=== PATIENT | female | born 1940 | race Caucasian/White ===

== ENCOUNTER 2018-05-23 12:08 | Emergency (ER) | payer MEDICARE, OTHER ==
[~2018-05-23] VITALS: Ht 157.5 cm; Wt 61.2 kg
[~2018-05-23 12:08] MED LIST: ATEN25 PO; GABA100 PO; IBUP800 PO; LEVFLO500 PO; OMEP20ER PO; TRAV.004OP OU
[2018-05-23 13:57] LABS: BASOPHILS ABSOLUTE AUTO 0.05 K/mm3 (0.00-0.23); BASOPHILS PERCENT AUTO 1 % (0-2); EOSINOPHILS ABSOLUTE AUTO 0.03 K/mm3 (0.00-0.68); EOSINOPHILS PERCENT AUTO 1 % (0-6); Hematocrit 39.7 % (33.0-51.0); Hemoglobin 13.5 g/dL (11.5-16.0); IMMATURE GRAN ABSOLUTE AUTO 0.01 K/mm3 (0.00-0.10); IMMATURE GRAN PERCENT AUTO 0 % (0-1); LYMPHOCYTES ABSOLUTE AUTO 1.42 K/mm3 (0.84-5.20); LYMPHOCYTES PERCENT AUTO 22 % (21-46); MONOCYTES ABSOLUTE AUTO 0.45 K/mm3 (0.16-1.47); MONOCYTES PERCENT AUTO 7 % (4-13); Mean Corpuscular Volume 91 fL (80-100); Mean Platelet Volume 9.6 fL (9.1-12.4); NEUTROPHILS ABSOLUTE AUTO 4.47 K/mm3 (1.96-9.15); NEUTROPHILS PERCENT AUTO 69 % (41-73); Platelet Count 260 K/mm3 (150-400); RDW Coefficient Variation 12.8 % (11.7-14.2); RDW Standard Deviation 42.7 fL (35.1-46.3); Red Blood Cell Count 4.36 M/mm3 (3.80-5.20); White Blood Cell Count 6.43 K/mm3 (4.00-11.30)
[2018-05-23 14:19] LABS: Alanine Aminotransfer (ALT/SGP 28 U/L (12-78); Albumin, Blood 3.8 g/dL (3.4-5.0); Albumin/Globulin Ratio 0.9 (0.8-1.8); Alk Phos 59 U/L (50-136); Anion Gap 8 mmol/L (6-16); Aspartate Aminotrans (AST/SGOT 25 U/L (12-37); Bilirubin, Total 0.6 mg/dL (0.1-1.0); Blood Urea Nitrogen 16 mg/dL (8-24); Bun/Creatinine Ratio 18.4 (12.0-20.0); CO2, Blood 30 mmol/L (21-32); Chloride, Blood 94 mmol/L (98-108); Creatinine, Blood 0.87 mg/dL (0.40-1.00); Globulin, Blood 4.2 g/dL (2.2-4.0); Glomerular Filtration Rate >60 (60-); Glucose, Blood 85 mg/dL (70-99); Potassium, Blood 3.8 mmol/L (3.5-5.5); Sodium, Blood 132 mmol/L (136-145)
[2018-05-23 16:53] LABS: Source, Urine Clean Catch
[2018-05-23 17:07] LABS: Bilirubin, Urine Neg (Neg); Blood, Urine Neg (Neg); Glucose Qualitative, Urine Neg (Neg); Ketones, Urine Neg (Neg); Leukocyte Esterase, Urine Neg (Neg); Nitrite, Urine Neg (Neg); Protein, Urine Neg (Neg); Specific Gravity, Urine 1.015 (1.003-1.022); Urobilinogen, Urine NORM (Normal)
[2018-05-23 17:16] LABS: Appearance, Urine Clear (Clear); Color, Urine Yellow (P-Yellow)
[2018-05-23] MEDS ORDERED: Zofran4 MG PO (19:44)
[2018-05-23] MEDS ORDERED: Norco 5-325 Ta1 EACH PO (19:44)
[2018-05-23] MEDS ORDERED: Omeprazole20 M1 PO (19:44)
== END 2018-05-23 20:02 | disposition home or self-care (01) ==
LOC: ER 12:08
PROVIDERS: Emergency Medicine
DX: R10.13 Epigastric pain (principal); I10 Essential (primary) hypertension; K21.9 Gastro-esophageal reflux disease without esophagitis; Z87.891 Personal history of nicotine dependence
CPT/HCPCS: 36415; 71046; 80053; 81003; 83690; 84484; 85025; 93005; 93010; 99284-25

== ENCOUNTER 2018-09-19 07:30 | Day surgery (SDC) | payer MEDICARE, OTHER ==
[~2018-09-19] VITALS: Ht 157.5 cm; Wt 61.7 kg
[~2018-09-19 07:30] MED LIST changes: +Aspir 8181 MG PO; +CLON.1 PO; +CLON.3TP TOP; +ERGO400 PO; +ESCI10 PO; +HYDCHL25 PO; +LOSA25 PO; +Norco 5-325 Ta1 EACH PO; +Omeprazole20 M1 PO; +Super B Comple1 EAC2 PO; +VIT1CAPS12 PO; +Xalatan2.5 ML BOTHEYES; +Zofran4 MG PO
--- NOTE | 2018-09-19 08:23 | NUR ---
Ambulatory in Day Surgery Lungs clear T/O to Auscultation. History, Chart, Medications and Allergies reviewed before start of procedure. Patient confirms NPO status and agrees with scheduled surgery. Pre-Op teaching done. Pt verbalizes understanding. Patient States Post-Procedure ride home has been arranged.
--- NOTE | 2018-09-19 12:58 | NUR ---
TRANSFER TO DAYSURGERY WITH KELBY DOMINGUEZ
--- NOTE | 2018-09-19 13:53 | NUR ---
"DAY SURGERY RN | DISCHARGE Patient VSS, A/O. No issues in stepdown. Pain meds given per written orders. Discharge instructions stable, family at bedside. Sites C/D/I. Patient states she takes one baby aspirin daily. No order to hold or change medications from surgeon. Patient tolerating PO fluids and food. Denies pain and nausea. Patient wheeled to private vehicle for ride home. All belongings returned to patient."
--- NOTE | 2018-09-19 14:03 | NUR ---
VERBAL ORDER FROM DR. ROSE TO RESTART ALL HOME MEDS INCLUDING ASPIRIN.
== END 2018-09-20 22:46 | disposition home or self-care (01) ==
LOC: ORSCMMR 07:30 → ORD 09:00 → ORSCMMR 09:00
PROVIDERS: Surgery
PROC: 0FT44ZZ Resection of Gallbladder, Percutaneous Endoscopic Approach (ICD-10-PCS; principal; 2018-09-19 11:30)
DX: K80.20 Calculus of gallbladder without cholecystitis without obstruction (principal); I10 Essential (primary) hypertension; Z79.899 Other long term (current) drug therapy; Z79.82 Long term (current) use of aspirin
CPT/HCPCS: 88304; J0694; J1885; J2250; J2710; J3010; J7030; J7120

== ENCOUNTER 2018-09-20 13:36 | Inpatient (IN) | payer MEDICARE, OTHER ==
[~2018-09-20] VITALS: Ht 157.5 cm; Wt 69.1 kg
[2018-09-20 14:34] LABS: Alanine Aminotransfer (ALT/SGP 56 U/L (12-78); Albumin, Blood 3.8 g/dL (3.4-5.0); Albumin/Globulin Ratio 0.9 (0.8-1.8); Alk Phos 53 U/L (50-136); Anion Gap 11 mmol/L (6-16); Aspartate Aminotrans (AST/SGOT 46 U/L (12-37); Bilirubin, Total 0.6 mg/dL (0.1-1.0); Blood Urea Nitrogen 23 mg/dL (8-24); Bun/Creatinine Ratio 24.9 (12.0-20.0); CO2, Blood 27 mmol/L (21-32); Chloride, Blood 97 mmol/L (98-108); Creatinine, Blood 0.93 mg/dL (0.40-1.00); Globulin, Blood 4.1 g/dL (2.2-4.0); Glomerular Filtration Rate >60 (60-); Glucose, Blood 108 mg/dL (70-99); Potassium, Blood 3.3 mmol/L (3.5-5.5); Sodium, Blood 135 mmol/L (136-145); Total Protein, Blood 7.9 g/dL (6.4-8.2); Troponin I <0.015 ng/mL (0.000-0.040)
[2018-09-20 14:35] LABS: BASOPHILS ABSOLUTE AUTO 0.03 K/mm3 (0.00-0.23); BASOPHILS PERCENT AUTO 0 % (0-2); EOSINOPHILS ABSOLUTE AUTO 0.01 K/mm3 (0.00-0.68); EOSINOPHILS PERCENT AUTO 0 % (0-6); Hematocrit 37.6 % (33.0-51.0); Hemoglobin 12.6 g/dL (11.5-16.0); IMMATURE GRAN ABSOLUTE AUTO 0.03 K/mm3 (0.00-0.10); IMMATURE GRAN PERCENT AUTO 0 % (0-1); LYMPHOCYTES PERCENT AUTO 16 % (21-46); MONOCYTES ABSOLUTE AUTO 0.89 K/mm3 (0.16-1.47); MONOCYTES PERCENT AUTO 8 % (4-13); Mean Corpuscular HGB 30.1 pg (26.0-34.0); Mean Corpuscular HGB Conc 33.5 g/dL (31.5-36.5); Mean Corpuscular Volume 90 fL (80-100); Mean Platelet Volume 9.6 fL (9.1-12.4); NEUTROPHILS ABSOLUTE AUTO 7.88 K/mm3 (1.96-9.15); NEUTROPHILS PERCENT AUTO 75 % (41-73); Platelet Count 268 K/mm3 (150-400); RDW Coefficient Variation 12.6 % (11.7-14.2); RDW Standard Deviation 41.4 fL (35.1-46.3); Red Blood Cell Count 4.19 M/mm3 (3.80-5.20); White Blood Cell Count 10.54 K/mm3 (4.00-11.30)
[2018-09-20 20:06] LABS: Source, Urine Catheter
[2018-09-20 20:08] LABS: Appearance, Urine Clear (Clear); Bilirubin, Urine Neg (Neg); Blood, Urine Neg (Neg); Color, Urine Yellow (P-Yellow); Glucose Qualitative, Urine Neg (Neg); Ketones, Urine Neg (Neg); Leukocyte Esterase, Urine Neg (Neg); Nitrite, Urine Neg (Neg); Protein, Urine Neg (Neg); Urobilinogen, Urine NORM (Normal); pH, Urine 6.5 (5.0-8.0)
--- NOTE | 2018-09-20 22:47 | NUR ---
TRANSFERED CARE TO NEXT RN. PT REPORTS NAUSEA HAS IMPROVED WITH ZOFRAN. STRAIGHT CATH COMPLETED AND URINE SAMPLE SENT TO THE LAB. PT HAS NOT VOIDED SINCE. NEXT RN IS AWARE AND WILL CTM.
--- NOTE | 2018-09-20 22:55 | NUR ---
ASSUMED CARE OF PT, PT IS SLEEPING WILL CONT TO MONITOR. CALL LIGHT IN REACH.
--- NOTE | 2018-09-21 01:45 | NUR ---
PT WAS ABLE TO VOID 400ML. DID PVR AND IT SHOWED 325ML. PT DID ATTEMPT TO VOID MORE BUT UNABLE. PT STATES ABD DOES FEEL BEETER AND LESS BLOATED. WILL WAIT ON ST CATH'ING AT THIS TIME. WAS MEDICATED WITH 0.5MG DILAUDID. BP MUCH BETTER.
--- NOTE | 2018-09-21 05:55 | NUR ---
PT IS POD 2 S/P LAP OMAYRA DONE OUTPT AND RETURNED FOR POST OP PAIN. PAIN AND DISTENTION SEEM TO BE RELATED TO URINARY RETENTION. PT HAS BEEN CATH'D TWICE THIS SHIFT WHICH RELIEVED MOST OF PAIN. ALSO PT HAD TO BE TITRATED UP TO 3L NC TO MAINTAIN SPO2>90. INCENTIVE SPIROMETER HAS BEEN GIVEN. CALL LIGHT IN REACH.
[2018-09-21 06:18] LABS: Alanine Aminotransfer (ALT/SGP 57 U/L (12-78); Albumin, Blood 3.3 g/dL (3.4-5.0); Albumin/Globulin Ratio 0.9 (0.8-1.8); Alk Phos 57 U/L (50-136); Anion Gap 8 mmol/L (6-16); Aspartate Aminotrans (AST/SGOT 51 U/L (12-37); Bilirubin, Total 0.7 mg/dL (0.1-1.0); Blood Urea Nitrogen 15 mg/dL (8-24); Bun/Creatinine Ratio 18.8 (12.0-20.0); CO2, Blood 30 mmol/L (21-32); Calcium, Blood 8.5 mg/dL (8.5-10.1); Chloride, Blood 100 mmol/L (98-108); Globulin, Blood 3.7 g/dL (2.2-4.0); Glomerular Filtration Rate >60 (60-); Glucose, Blood 105 mg/dL (70-99); Potassium, Blood 3.4 mmol/L (3.5-5.5); Sodium, Blood 138 mmol/L (136-145)
--- NOTE | 2018-09-21 19:00 | NUR ---
PT. LYING IN BED AFTER AMBULATING IN [place]. IVF DISCONTINUED AND CLEAR LIQUIDS STARTED. PT. TOLERATING WELL. PY. GIVEN SUPPOSITORY AND MIRALAX TODAY PER DR. ROSE. PT. PRESENTED WITH MEDIUM STOOL BROWN IN COLOR. PT. HAS ONLY VOIDED A SMALL AMOUNT TODAY AND DENIES THE NEED TO VOID. BLADDER SCAN DONE 3 TIMES TODAY AND THE MOST IT SHOWED WAS 200. PT. BLADDER AREA NON-TENDER WHEN PALPATED. PT. HAD A HIDA SCAN EARLIER TODAY WHICH SHOWED A SMALL LEAK. NO OTHER NOTEABLE CHANGES THIS SHIFT.
--- NOTE | 2018-09-22 04:50 | NUR ---
PT POD 3 S/P OUT PT LAP OMAYRA. PT DID REQ 3LO2 NC TO KEEP SATS >90%, OTHER VSS. PT IS BREATHING SHALLOW R/T PAIN, I/S AND DEEP BREATHING REINFORCED. PT CONT TO C/O RUQ ABD PAIN; ABD MOD DISTENDED, PT REP NO FLATUS; DENIED N/V. I/O CATH DONE X1 R/T BLADDER SCAN >400. STERI STRIPS CDI. PT UP OOB W/FWW+1 ASSIST, IS PAINFUL W/MVMT. PT USING CALL LIGHT FOR ASSISTANCE, WILL CONT TO MONITOR UNTIL REP GIVEN TO ONCOMING RN.
[2018-09-22 05:51] LABS: Alanine Aminotransfer (ALT/SGP 98 U/L (12-78); Albumin, Blood 2.9 g/dL (3.4-5.0); Albumin/Globulin Ratio 0.8 (0.8-1.8); Alk Phos 73 U/L (50-136); Anion Gap 6 mmol/L (6-16); Aspartate Aminotrans (AST/SGOT 101 U/L (12-37); Bilirubin, Total 1.4 mg/dL (0.1-1.0); Blood Urea Nitrogen 14 mg/dL (8-24); CO2, Blood 33 mmol/L (21-32); Calcium, Blood 8.2 mg/dL (8.5-10.1); Chloride, Blood 98 mmol/L (98-108); Creatinine, Blood 0.78 mg/dL (0.40-1.00); Globulin, Blood 3.7 g/dL (2.2-4.0); Glomerular Filtration Rate >60 (60-); Glucose, Blood 103 mg/dL (70-99); Potassium, Blood 4.1 mmol/L (3.5-5.5); Sodium, Blood 137 mmol/L (136-145); Total Protein, Blood 6.6 g/dL (6.4-8.2)
[2018-09-22 09:07] LABS: International Normalized Ratio 1.02; Prothrombin Time Results 10.8 Sec (9.7-11.5)
[2018-09-22 11:59] LABS: Source, Urine Catheter
[2018-09-22 12:13] LABS: Blood, Urine 2+ (Neg); Glucose Qualitative, Urine Neg (Neg); Ketones, Urine 3+ (Neg); Leukocyte Esterase, Urine 1+ (Neg); Nitrite, Urine Neg (Neg); Protein, Urine 2+ (Neg); Specific Gravity, Urine 1.025 (1.003-1.022); Urobilinogen, Urine 1+ (Normal)
[2018-09-22 12:38] LABS: Bilirubin, Urine 1+ (Neg)
[2018-09-22 12:42] LABS: Appearance, Urine Clear (Clear); Color, Urine Yellow (P-Yellow)
[2018-09-22 12:44] LABS: Granular Casts 0-2 /lpf (0)
[2018-09-22 12:45] LABS: White Blood Cells, Urine 0-2 /hpf (0-5)
[2018-09-22 12:50] LABS: Squamous Epithelial Cells Few /hpf (Few)
[2018-09-22 12:51] LABS: Bacteria Rare /hpf; Mucus Light (0-Heavy)
--- NOTE | 2018-09-22 16:16 | NUR ---
SHIFT SUMMARY- PT C/O ABDOMINAL PAIN. MEDS GIVEN PER EMAR. PT DENIES N/V. PT REPORTS SHE IS PASSING GAS. CLAY CATH PLACED. PATENT AND DRAINING CLEAR BRIGHT ORANGE URINE. UA SENT. PT HAD US OF ABDOMEN TODAY AND A WOLOF PIGTAIL DRAIN CATH PLACED. PT TOLERATING CLEAR LIQUID DIET WELL. DENIES SOB. RESP E/U. 92% ON 3L O2 NC. 1 ASSIST WITH FWW. PT'S SPOUSE AND FAMILY IN TO SEE PT TODAY. NO OTHER SIGNIFICANT CHANGES THIS SHIFT.
[2018-09-23 04:41] LABS: BASOPHILS ABSOLUTE AUTO 0.02 K/mm3 (0.00-0.23); BASOPHILS PERCENT AUTO 0 % (0-2); EOSINOPHILS ABSOLUTE AUTO 0.02 K/mm3 (0.00-0.68); EOSINOPHILS PERCENT AUTO 0 % (0-6); Hematocrit 31.7 % (33.0-51.0); Hemoglobin 10.4 g/dL (11.5-16.0); IMMATURE GRAN ABSOLUTE AUTO 0.02 K/mm3 (0.00-0.10); IMMATURE GRAN PERCENT AUTO 0 % (0-1); LYMPHOCYTES ABSOLUTE AUTO 0.65 K/mm3 (0.84-5.20); LYMPHOCYTES PERCENT AUTO 8 % (21-46); MONOCYTES ABSOLUTE AUTO 0.59 K/mm3 (0.16-1.47); MONOCYTES PERCENT AUTO 8 % (4-13); Mean Corpuscular HGB 30.1 pg (26.0-34.0); Mean Corpuscular HGB Conc 32.8 g/dL (31.5-36.5); Mean Corpuscular Volume 92 fL (80-100); Mean Platelet Volume 9.9 fL (9.1-12.4); NEUTROPHILS ABSOLUTE AUTO 6.58 K/mm3 (1.96-9.15); NEUTROPHILS PERCENT AUTO 83 % (41-73); Platelet Count 187 K/mm3 (150-400); RDW Coefficient Variation 13.1 % (11.7-14.2); RDW Standard Deviation 43.7 fL (35.1-46.3); Red Blood Cell Count 3.46 M/mm3 (3.80-5.20); White Blood Cell Count 7.88 K/mm3 (4.00-11.30)
[2018-09-23 05:00] LABS: Alanine Aminotransfer (ALT/SGP 95 U/L (12-78); Albumin, Blood 2.4 g/dL (3.4-5.0); Albumin/Globulin Ratio 0.7 (0.8-1.8); Alk Phos 94 U/L (50-136); Anion Gap 5 mmol/L (6-16); Aspartate Aminotrans (AST/SGOT 79 U/L (12-37); Bilirubin, Total 1.3 mg/dL (0.1-1.0); Blood Urea Nitrogen 10 mg/dL (8-24); Bun/Creatinine Ratio 14.6 (12.0-20.0); CO2, Blood 33 mmol/L (21-32); Calcium, Blood 7.9 mg/dL (8.5-10.1); Chloride, Blood 96 mmol/L (98-108); Creatinine, Blood 0.69 mg/dL (0.40-1.00); Globulin, Blood 3.5 g/dL (2.2-4.0); Glomerular Filtration Rate >60 (60-); Glucose, Blood 129 mg/dL (70-99); Potassium, Blood 3.2 mmol/L (3.5-5.5); Sodium, Blood 134 mmol/L (136-145); Total Protein, Blood 5.9 g/dL (6.4-8.2)
--- NOTE | 2018-09-23 07:50 | NUR ---
POD 4 S/P LAP OMAYRA, POD 1 S/P PIGTAIL DRAIN PLACEMENT. PT VSS T/O NIGHT. PT DOES REP LESS PAIN SINCE DRAIN PLACED, ABD SLIGHTLY LESS DISTENDED THIS AM. DRAIN W/APPX 5CC OUT THIS SHIFT. PT IS PASSING SM AMT FLATUS, NO C/O N/V. PT CONT TO REQ 3L O2 NC TO KEEP SATS >90%, I/S AND DEEP BREATHING REINFORCED DURING NIGHT. CLAY PATENT. PT UP W/FWW+1 ASSIST, IS USING CALL LIGHT FOR ASSISTNACE. IVF CONT PER ORDERS. REP GIVEN TO DAY RN.
--- NOTE | 2018-09-23 18:06 | NUR ---
SHIFT SUMMARY NO ACUTE CHANGES THIS SHIFT. VSS. PT REPORTS BETTER PAIN MANAGEMENT TODAY--GETTING 1MG IV DILAUDID PRN. PT ADY REG DIET. PASSING MINIMAL GAS. AMBULATED HALLWAY X1 AND CONTINUING TO ENCOURAGE. DENIES N/V. PIG TAIL DRAIN TO R ABD IS INTACT WITH GREEN BILE DRAINAGE. STERI STRIPS TO ABD ARE CDI. CLAY IN PLACE FOR URINARY RETENTION. PT USES CALL LIGHT APPROPRIATELY.
[2018-09-24 04:11] LABS: BASOPHILS ABSOLUTE AUTO 0.02 K/mm3 (0.00-0.23); BASOPHILS PERCENT AUTO 0 % (0-2); EOSINOPHILS ABSOLUTE AUTO 0.22 K/mm3 (0.00-0.68); EOSINOPHILS PERCENT AUTO 3 % (0-6); Hematocrit 32.1 % (33.0-51.0); Hemoglobin 10.5 g/dL (11.5-16.0); IMMATURE GRAN ABSOLUTE AUTO 0.03 K/mm3 (0.00-0.10); IMMATURE GRAN PERCENT AUTO 0 % (0-1); LYMPHOCYTES ABSOLUTE AUTO 0.79 K/mm3 (0.84-5.20); LYMPHOCYTES PERCENT AUTO 11 % (21-46); MONOCYTES ABSOLUTE AUTO 0.62 K/mm3 (0.16-1.47); MONOCYTES PERCENT AUTO 9 % (4-13); Mean Corpuscular HGB 30.3 pg (26.0-34.0); Mean Corpuscular HGB Conc 32.7 g/dL (31.5-36.5); Mean Corpuscular Volume 93 fL (80-100); Mean Platelet Volume 10.2 fL (9.1-12.4); NEUTROPHILS PERCENT AUTO 76 % (41-73); Platelet Count 208 K/mm3 (150-400); RDW Coefficient Variation 12.8 % (11.7-14.2); RDW Standard Deviation 43.1 fL (35.1-46.3); Red Blood Cell Count 3.46 M/mm3 (3.80-5.20); White Blood Cell Count 7.08 K/mm3 (4.00-11.30)
--- NOTE | 2018-09-24 04:20 | NUR ---
SHIFT SUMMARY: PT POD #5 LAP OMYARA. STERI STRIPS CDI WITH SML AMT OF DRG. PIG TAIL DRAIN INTACT WITH MINIMAL OUTPUT IF GREENISH-YELLOW BILE. PAIN MANAGED WITH 1 MG DILAUDID. ADY REG DIET. DENIES N/V. REPORTS PASSING SML AMT OF GAS. FLUIDS INFUSING. CLAY INTACT AND DRAINING [place] AMT OF URINE. O2 DECREASED FROM 3L TO 2.5 L NC. SATS MAINTAINED ABOVE 90%. CONTINUE TO DECREASE TOLERATED. OOB ONCE THIS SHIFT. AMBULATION ENCOURAGED.
[2018-09-24 04:33] LABS: Alanine Aminotransfer (ALT/SGP 69 U/L (12-78); Albumin, Blood 2.1 g/dL (3.4-5.0); Albumin/Globulin Ratio 0.6 (0.8-1.8); Alk Phos 119 U/L (50-136); Anion Gap 5 mmol/L (6-16); Aspartate Aminotrans (AST/SGOT 44 U/L (12-37); Bilirubin, Total 1.3 mg/dL (0.1-1.0); Blood Urea Nitrogen 6 mg/dL (8-24); Bun/Creatinine Ratio 9.2 (12.0-20.0); CO2, Blood 34 mmol/L (21-32); Calcium, Blood 7.8 mg/dL (8.5-10.1); Chloride, Blood 99 mmol/L (98-108); Creatinine, Blood 0.65 mg/dL (0.40-1.00); Globulin, Blood 3.6 g/dL (2.2-4.0); Glomerular Filtration Rate >60 (60-); Glucose, Blood 106 mg/dL (70-99); Sodium, Blood 138 mmol/L (136-145); Total Protein, Blood 5.7 g/dL (6.4-8.2)
--- NOTE | 2018-09-24 16:52 | NUR ---
SHIFT SUMMARY NO ACUTE CHANGES THIS SHIFT. ATTEMPTED RA AND PT DROPPED TO 88%. ON 1L O2 AND NOW 91-93%. STARTED ON ORAL PAIN MEDS AND TAKING 1 NORCO PRN. ADY REG DIET. AMBULATING HALLWAY WITH SBA. PASSING MINIMAL GAS. PIGTAIL DRAIN WITH MINIMAL GREEN DRAINAGE IN IT. CLAY DC'D TODAY AND PLANNING TO BLADDER SCAN PRN. STERI STRIPS TO ABD ARE DRY AND INTACT. CALL LIGHT WITHIN REACH.
--- NOTE | 2018-09-25 00:40 | NUR ---
STARTED MIDNIGHT ABX- IV BEGAN LEAKING. PLAN TO ATTEMPT NEW IV AND FINISH ABX.
--- NOTE | 2018-09-25 01:16 | NUR ---
IV ABX NOW RUNNING.
--- NOTE | 2018-09-25 01:53 | NUR ---
REPORT RECIEVED FROM RUDI DOMINGUEZ.CARE ASSUMED AT THIS TIME
--- NOTE | 2018-09-25 02:16 | NUR ---
REPORT GIVEN TO ALBERTO GARCIA WHO WILL BE RESUMING CARE OF PATIENT.
--- NOTE | 2018-09-25 04:31 | NUR ---
SUMMARY: NO CHANGE SINCE ASSUMING CARE. PT MEDICATED FOR PAIN PRN PO AND 1MG DILAUDID FOR BREAK THROUGH. INDEPENDENT IN ROOM. VSS, NO SAFETY CONCERNS AT THIS TIME. WILL REPORT TO DAY RN
--- NOTE | 2018-09-25 04:57 | NUR ---
ABOUT 90ML IN PIGTAIL BAG, LEFT UNDRAINED. APPEARS PURULENT. WILL CTM
--- NOTE | 2018-09-25 10:00 | NUR ---
ROUNDING: DR FERGUSON IN TO SEE PATIENT. DRAIN LEFT IN PLACE AT THIS TIME. REPEAT LAB WORK PENDING. ENCOURAGING AMBULATION. PT WALKING HALLWAYS WITH . CONT TO PASS FLATUS.
[2018-09-25 10:50] LABS: Alanine Aminotransfer (ALT/SGP 74 U/L (12-78); Albumin, Blood 2.6 g/dL (3.4-5.0); Albumin/Globulin Ratio 0.6 (0.8-1.8); Alk Phos 225 U/L (50-136); Anion Gap 7 mmol/L (6-16); Aspartate Aminotrans (AST/SGOT 54 U/L (12-37); Bilirubin, Total 1.3 mg/dL (0.1-1.0); Blood Urea Nitrogen 10 mg/dL (8-24); Bun/Creatinine Ratio 12.8 (12.0-20.0); CO2, Blood 34 mmol/L (21-32); Calcium, Blood 8.7 mg/dL (8.5-10.1); Chloride, Blood 94 mmol/L (98-108); Creatinine, Blood 0.78 mg/dL (0.40-1.00); Globulin, Blood 4.2 g/dL (2.2-4.0); Glomerular Filtration Rate >60 (60-); Glucose, Blood 119 mg/dL (70-99); Sodium, Blood 135 mmol/L (136-145); Total Protein, Blood 6.8 g/dL (6.4-8.2)
--- NOTE | 2018-09-25 18:24 | NUR ---
PT HAS BEEN STABLE THIS SHIFT. PT UP TO WALK HALLWAYS SEVERAL TIMES AND SIT IN THE CHAIR. PIGTAIL DRAIN WITH ONLY 40CC OUTPUT THIS SHIFT. SURGERY WILL REEVALUTE CONT NEED FOR DRAIN TOMORROW. PT MILD ABD PAIN CONTROLLED WITH PRN NORCO. PT PASSING FLATUS AND HAD FORMED BM THIS EVENING. NO NAUSEA. ADY REG DIET. REPEAT BILIRUBIN UNCHANGED THIS AM. CONT ABX. PT USES CALL LIGHT APPROPRIATELY PRN.
--- NOTE | 2018-09-26 05:46 | NUR ---
SHIFT SUMMARY: NO ACUTE CHANGES THIS SHIFT. PAIN MANAGED WITH NORCO Q4 PER EMAR. PIGTAIL DRAINING YELLOW DRG. TOTAL OUTPUT OF 50 THIS SHIFT. PASSING GAS AND STOOL. ADY REG DIET. RESTING MOST OF SHIFT. NO CONCERNS AT THIS TIME.
[2018-09-26 08:39] LABS: Alanine Aminotransfer (ALT/SGP 59 U/L (12-78); Albumin, Blood 2.6 g/dL (3.4-5.0); Albumin/Globulin Ratio 0.6 (0.8-1.8); Alk Phos 235 U/L (50-136); Anion Gap 8 mmol/L (6-16); Aspartate Aminotrans (AST/SGOT 40 U/L (12-37); Bilirubin, Total 0.9 mg/dL (0.1-1.0); Blood Urea Nitrogen 9 mg/dL (8-24); Bun/Creatinine Ratio 12.6 (12.0-20.0); CO2, Blood 32 mmol/L (21-32); Calcium, Blood 8.7 mg/dL (8.5-10.1); Chloride, Blood 96 mmol/L (98-108); Creatinine, Blood 0.71 mg/dL (0.40-1.00); Glomerular Filtration Rate >60 (60-); Glucose, Blood 85 mg/dL (70-99); Potassium, Blood 3.7 mmol/L (3.5-5.5); Sodium, Blood 136 mmol/L (136-145); Total Protein, Blood 6.6 g/dL (6.4-8.2)
--- NOTE | 2018-09-26 14:05 | NUR ---
DISCHARGE PT HAS DONE WELL TODAY. PAIN WELL MANAGED. DRAIN EDUCATION COMPLETED. PATIENT FEELS COMFORTABLE WITH DISCHARGE.
== END 2018-09-26 14:10 | disposition home or self-care (01) | DRG 395 ==
LOC: ER 13:36 → SURS 13:37
PROVIDERS: Physician Assistant; Surgery; ADMIT Surgery
PROC: 0D9W30Z Drainage of Peritoneum with Drainage Device, Percutaneous Approach (ICD-10-PCS; principal; 2018-09-22)
DX: K91.89 Other postprocedural complications and disorders of digestive system (principal); Z79.82 Long term (current) use of aspirin; I45.6 Pre-excitation syndrome; H35.30 Unspecified macular degeneration; K21.9 Gastro-esophageal reflux disease without esophagitis; I10 Essential (primary) hypertension; Z87.891 Personal history of nicotine dependence; R33.9 Retention of urine, unspecified
CPT/HCPCS: 36415; 49405; 51701; 51702; 71046; 74177; 74181; 76705; 78226; 80053; 81001; 81003; 84484; 85025; 85610; 85730; 87086; 93005; 93010; 96361; 96365; 96366; 96374; 96375; 96376; 99285-25; A9537; G0378; J0694; J1170; J1650; J2405; J3010; J7120; Q9967

== ENCOUNTER → 2018-10-10 | Outpatient (CLI) | payer MEDICARE, OTHER ==
[2018-10-10 07:39] LABS: Albumin, Blood 3.2 g/dL (3.4-5.0); Albumin/Globulin Ratio 0.8 (0.8-1.8); Bilirubin, Direct 0.2 mg/dL (0.0-0.3); Bilirubin, Indirect 0.2 mg/dL (0.1-0.7); Bilirubin, Total 0.4 mg/dL (0.1-1.0); Globulin, Blood 4.1 g/dL (2.2-4.0); Total Protein, Blood 7.3 g/dL (6.4-8.2)
== END | disposition home or self-care (01) ==
LOC: LAB SHORT 07:03 → LAB 07:03
PROVIDERS: Surgery
DX: R74.8 Abnormal levels of other serum enzymes (principal)
CPT/HCPCS: 36415; 80076

== ENCOUNTER → 2018-11-03 | Outpatient (CLI) | payer MEDICARE, OTHER | END | disposition home or self-care (01) | LOC: LAB 12:30 → LAB SHORT 12:30 → LAB FUT 11-03 10:10 | DX: E78.5 Hyperlipidemia, unspecified (principal); K30 Functional dyspepsia | CPT/HCPCS: 87338 ==

== ENCOUNTER → 2019-10-30 | Outpatient (CLI) | payer MEDICARE, OTHER | END | disposition home or self-care (01) | LOC: LAB SHORT 08:15 → LAB 08:15 → LAB FUT 10-26 12:00 | DX: R11.0 Nausea (principal); R10.9 Unspecified abdominal pain | CPT/HCPCS: 87338 ==

== ENCOUNTER 2020-11-26 11:25 | Emergency (ER) | payer MEDICARE, OTHER ==
[~2020-11-26] VITALS: Ht 157.5 cm; Wt 64.0 kg
[2020-11-26] MEDS ORDERED: POTA CHLORIDE ER 20M (12:28)
[2020-11-26] MEDS ORDERED: FUROSEMIDE20 MG PO (12:28)
[2020-11-26] MEDS ORDERED: Ultram50 MG PO (13:37)
== END 2020-11-26 13:41 | disposition home or self-care (01) ==
LOC: ER 11:25
DX: S20.211A Contusion of right front wall of thorax, initial encounter (principal); I10 Essential (primary) hypertension; K21.9 Gastro-esophageal reflux disease without esophagitis; Z88.5 Allergy status to narcotic agent; Z88.8 Allergy status to other drugs, medicaments and biological substances; Z79.899 Other long term (current) drug therapy; Z87.891 Personal history of nicotine dependence; W01.198A Fall on same level from slipping, tripping and stumbling with subsequent striking against other object, initial encounter
CPT/HCPCS: 71101; 99284-25

== ENCOUNTER 2021-05-13 03:26 | Day surgery (SDC) | payer MEDICARE, OTHER ==
[~2021-05-13 03:26] MED LIST changes: +FUROSEMIDE20 MG PO; +POTA CHLORIDE ER 20M; +Ultram50 MG PO
== END 2021-05-13 11:31 | disposition home or self-care (01) ==
LOC: ATC 03:26
DX: I95.9 Hypotension, unspecified (principal); I10 Essential (primary) hypertension; E78.5 Hyperlipidemia, unspecified; Z79.899 Other long term (current) drug therapy
CPT/HCPCS: 36415; 80400; 82533; 96372; J0834

== ENCOUNTER 2021-10-10 07:30 | Day surgery (SDC) | payer MEDICARE, OTHER ==
[~2021-10-10] VITALS: Ht 157.5 cm; Wt 63.6 kg
[~2021-10-10 07:30] MED LIST changes: +K-TAB ER20 MEQ PO; -POTA CHLORIDE ER 20M
--- NOTE | 2021-10-10 10:20 | NUR ---
10/10/21 1020 Cornel Fonseca BUPIVACAINE 0.5% 30 MLS MIXFED WITH EPI 0.15 ML PER ORDER TO CONSTITUTE BUPIVACAINE 0.5% 1:200,000 FOR INJECTION AT OPSITE BY DR. FLORES.
== END 2021-10-10 11:42 | disposition home or self-care (01) ==
LOC: ORSCSDS 07:30
PROVIDERS: Orthopaedic Surgery
PROC: 0LB50ZZ Excision of Right Lower Arm and Wrist Tendon, Open Approach (ICD-10-PCS; principal; 2021-10-10 08:45)
PROC: 0LN70ZZ Release Right Hand Tendon, Open Approach (ICD-10-PCS; principal; 2021-10-10 08:45)
DX: M67.431 Ganglion, right wrist (principal); M65.321 Trigger finger, right index finger; M65.331 Trigger finger, right middle finger; I48.91 Unspecified atrial fibrillation; I10 Essential (primary) hypertension; J44.9 Chronic obstructive pulmonary disease, unspecified; Z87.891 Personal history of nicotine dependence; I50.9 Heart failure, unspecified; Z79.899 Other long term (current) drug therapy
CPT/HCPCS: J0171; J0690; J1100; J1885; J2405; J2704; J3010; J7120

== ENCOUNTER 2023-07-08 06:31 | Day surgery (SDC) | payer MEDICARE, OTHER ==
[~2023-07-08] VITALS: Ht 160 cm; Wt 64.0 kg
--- NOTE | 2023-07-08 08:06 | NUR ---
PT AND VERBALIZED UNDEDSTANDING OF WRITTEN AND VERBAL D/C INST. IV REMOVED. PT AMB TO BATHROOM /C SBA. TOLERATED WELL. PT TAKEN OUT OF THE [facility]ENTER VIA W/C. TAKING CLEAR LIQ /S DIFF.
== END 2023-07-08 08:16 | disposition home or self-care (01) ==
LOC: MHTC 06:31
DX: R06.09 Other forms of dyspnea (principal); I34.0 Nonrheumatic mitral (valve) insufficiency; I34.1 Nonrheumatic mitral (valve) prolapse; I51.89 Other ill-defined heart diseases; I45.10 Unspecified right bundle-branch block; I10 Essential (primary) hypertension
CPT/HCPCS: 93312; 93325; 99152; A9270; J2250; J2310; J3010; J7030

== ENCOUNTER → 2024-01-27 | Outpatient (CLI) | payer MEDICARE, OTHER ==
[2024-01-27 16:31] LABS: Albumin, Blood 2.2 g/dL (3.4-5.0); Albumin/Globulin Ratio 0.6 (0.8-1.8); Bilirubin, Total 0.3 mg/dL (0.1-1.0); Bun/Creatinine Ratio 13.4 (12.0-20.0); Calcium, Blood 8.3 mg/dL (8.5-10.1); Creatinine, Blood 0.97 mg/dL (0.40-1.00); Globulin, Blood 3.8 g/dL (2.2-4.0); Potassium, Blood 2.8 mmol/L (3.5-5.5)
== END ==
LOC: LAB SHORT 14:54 → LAB 14:54
PROVIDERS: Internal Medicine
DX: Z45.2 Encounter for adjustment and management of vascular access device (principal)
CPT/HCPCS: 80053

== ENCOUNTER → 2024-02-03 | Outpatient (CLI) | payer MEDICARE, OTHER ==
[2024-02-03 16:01] LABS: Albumin, Blood 2.3 g/dL (3.4-5.0); Albumin/Globulin Ratio 0.6 (0.8-1.8); Bilirubin, Total 0.4 mg/dL (0.1-1.0); Calcium, Blood 8.6 mg/dL (8.5-10.1); Creatinine, Blood 0.94 mg/dL (0.40-1.00); Globulin, Blood 4.1 g/dL (2.2-4.0); Potassium, Blood 3.5 mmol/L (3.5-5.5); Total Protein, Blood 6.4 g/dL (6.4-8.2)
== END | disposition home or self-care (01) ==
LOC: LAB SHORT 14:10 → LAB 14:10
PROVIDERS: Internal Medicine
DX: Z45.2 Encounter for adjustment and management of vascular access device (principal); R78.81 Bacteremia; Z79.2 Long term (current) use of antibiotics
CPT/HCPCS: 80053

== ENCOUNTER → 2024-02-10 | Outpatient (CLI) | payer MEDICARE, OTHER ==
[2024-02-10 18:06] LABS: Albumin, Blood 2.5 g/dL (3.4-5.0); Albumin/Globulin Ratio 0.6 (0.8-1.8); Bilirubin, Total 0.3 mg/dL (0.1-1.0); Bun/Creatinine Ratio 12.3 (12.0-20.0); Calcium, Blood 8.8 mg/dL (8.5-10.1); Creatinine, Blood 1.06 mg/dL (0.40-1.00); Globulin, Blood 3.9 g/dL (2.2-4.0); Potassium, Blood 4.2 mmol/L (3.5-5.5); Total Protein, Blood 6.4 g/dL (6.4-8.2)
== END | disposition home or self-care (01) ==
LOC: LAB SHORT 17:41 → LAB 17:41
PROVIDERS: Internal Medicine
DX: Z45.2 Encounter for adjustment and management of vascular access device (principal); Z79.2 Long term (current) use of antibiotics
CPT/HCPCS: 80053

== ENCOUNTER → 2024-02-17 | Outpatient (CLI) | payer MEDICARE, OTHER ==
[2024-02-17 17:57] LABS: Albumin, Blood 2.1 g/dL (3.4-5.0); Albumin/Globulin Ratio 0.6 (0.8-1.8); Bilirubin, Total 0.4 mg/dL (0.1-1.0); Bun/Creatinine Ratio 18.1 (12.0-20.0); Calcium, Blood 8.2 mg/dL (8.5-10.1); Creatinine, Blood 1.27 mg/dL (0.40-1.00); Globulin, Blood 3.6 g/dL (2.2-4.0); Potassium, Blood 3.6 mmol/L (3.5-5.5); Total Protein, Blood 5.7 g/dL (6.4-8.2)
== END | disposition home or self-care (01) ==
LOC: LAB 16:08 → LAB SHORT 16:08
PROVIDERS: Internal Medicine
DX: Z45.2 Encounter for adjustment and management of vascular access device (principal)
CPT/HCPCS: 80053

== ENCOUNTER → 2024-03-01 | Outpatient (CLI) | payer MEDICARE, OTHER ==
[2024-03-01 18:14] LABS: BASOPHILS ABSOLUTE AUTO 0.06 K/mm3 (0.00-0.23); BASOPHILS PERCENT AUTO 1 % (0-2); EOSINOPHILS ABSOLUTE AUTO 0.03 K/mm3 (0.00-0.68); EOSINOPHILS PERCENT AUTO 1 % (0-6); Hematocrit 33.8 % (33.0-51.0); Hemoglobin 10.6 g/dL (11.5-16.0); IMMATURE GRAN ABSOLUTE AUTO 0.01 K/mm3 (0.00-0.10); IMMATURE GRAN PERCENT AUTO 0 % (0-1); LYMPHOCYTES ABSOLUTE AUTO 1.17 K/mm3 (0.84-5.20); LYMPHOCYTES PERCENT AUTO 25 % (21-46); MONOCYTES ABSOLUTE AUTO 0.45 K/mm3 (0.16-1.47); MONOCYTES PERCENT AUTO 10 % (4-13); Mean Corpuscular HGB Conc 31.4 g/dL (31.5-36.5); Mean Corpuscular Volume 96 fL (80-100); Mean Platelet Volume 11.9 fL (9.1-12.4); NEUTROPHILS ABSOLUTE AUTO 3.03 K/mm3 (1.96-9.15); NEUTROPHILS PERCENT AUTO 64 % (41-73); Platelet Count 234 K/mm3 (150-400); RDW Coefficient Variation 20.3 % (11.7-14.2); RDW Standard Deviation 71.8 fL (35.1-46.3); Red Blood Cell Count 3.53 M/mm3 (3.80-5.20); White Blood Cell Count 4.75 K/mm3 (4.00-11.30)
[2024-03-01 20:15] LABS: Albumin, Blood 2.9 g/dL (3.4-5.0); Albumin/Globulin Ratio 0.6 (0.8-1.8); Bilirubin, Total 0.9 mg/dL (0.1-1.0); Bun/Creatinine Ratio 18.1 (12.0-20.0); Calcium, Blood 9.6 mg/dL (8.5-10.1); Creatinine, Blood 0.94 mg/dL (0.40-1.00); Globulin, Blood 4.7 g/dL (2.2-4.0); Percent Saturation 19.9 % (15.0-50.0); Potassium, Blood 4.3 mmol/L (3.5-5.5); Total Protein, Blood 7.6 g/dL (6.4-8.2)
== END ==
LOC: LAB 15:50 → LAB SHORT 15:50
PROVIDERS: Internal Medicine
DX: D62 Acute posthemorrhagic anemia (principal); E61.1 Iron deficiency; I10 Essential (primary) hypertension
CPT/HCPCS: 80053; 82728; 83540; 83550; 85025

== ENCOUNTER 2024-11-03 15:21 | Inpatient (IN) | payer MEDICARE, OTHER ==
[~2024-11-03] VITALS: Ht 160 cm; Wt 48.2 kg
[~2024-11-03 15:21] MED LIST changes: +Enoxaparin 40 MG/0.4 ML SYR SC SCH
[2024-11-03 15:57] LABS: BASOPHILS ABSOLUTE AUTO 0.04 K/mm3 (0.00-0.23); BASOPHILS PERCENT AUTO 0 % (0-2); EOSINOPHILS ABSOLUTE AUTO 0.01 K/mm3 (0.00-0.68); EOSINOPHILS PERCENT AUTO 0 % (0-6); Hemoglobin 11.6 g/dL (11.5-16.0); IMMATURE GRAN ABSOLUTE AUTO 0.07 K/mm3 (0.00-0.10); IMMATURE GRAN PERCENT AUTO 1 % (0-1); LYMPHOCYTES ABSOLUTE AUTO 0.91 K/mm3 (0.84-5.20); LYMPHOCYTES PERCENT AUTO 6 % (21-46); MONOCYTES ABSOLUTE AUTO 0.78 K/mm3 (0.16-1.47); MONOCYTES PERCENT AUTO 5 % (4-13); Mean Corpuscular HGB 28.1 pg (26.0-34.0); Mean Corpuscular HGB Conc 31.4 g/dL (31.5-36.5); Mean Corpuscular Volume 90 fL (80-100); NEUTROPHILS ABSOLUTE AUTO 13.06 K/mm3 (1.96-9.15); NEUTROPHILS PERCENT AUTO 88 % (41-73); Platelet Count 161 K/mm3 (150-400); RDW Coefficient Variation 17.4 % (11.7-14.2); RDW Standard Deviation 56.1 fL (35.1-46.3); Red Blood Cell Count 4.13 M/mm3 (3.80-5.20); White Blood Cell Count 14.87 K/mm3 (4.00-11.30)
[2024-11-03] MEDS ORDERED: VENL37.5 PO (16:12)
[2024-11-03] MEDS ORDERED: ELIQUIS2.5 MG PO (16:12)
[2024-11-03] MEDS ORDERED: METOPROLOL SUCC25 MG PO (16:13)
[2024-11-03] MEDS ORDERED: PANT40 PO (16:14)
[2024-11-03] MEDS ORDERED: SENNA LAXATIVE8.6 MG PO (16:15)
[2024-11-03] MEDS ORDERED: FURO40 PO (16:16)
[2024-11-03] MEDS ORDERED: AMOX500 PO (16:16)
[2024-11-03] MEDS ORDERED: PRESERVISION A1 EAC2 PO (16:18)
[2024-11-03] MEDS ORDERED: MORPHINE S PO (16:18)
[2024-11-03] MEDS ORDERED: PROBIOTIC1 EA14 PO (16:19)
[2024-11-03] MEDS ORDERED: MELATONIN5 M1 PO (16:19)
[2024-11-03 16:20] LABS: Albumin, Blood 3.1 g/dL (3.4-5.0); Albumin/Globulin Ratio 0.8 (0.8-1.8); Bilirubin, Total 3.4 mg/dL (0.1-1.0); Creatinine, Blood 1.25 mg/dL (0.40-1.00); Globulin, Blood 3.8 g/dL (2.2-4.0); Magnesium, Blood 1.9 mg/dL (1.6-2.4); Phosphorus, Blood 4.5 mg/dL (2.5-4.9); Potassium, Blood 5.3 mmol/L (3.5-5.5); Total Protein, Blood 6.9 g/dL (6.4-8.2)
[2024-11-03] MEDS ORDERED: NS 1,000 ML IV SCH (16:45)
[2024-11-03 17:47] LABS: Source, Urine Clean Catch
[2024-11-03 17:53] LABS: Appearance, Urine Hazy (Clear); Bilirubin, Urine Neg (Neg); Blood, Urine Neg (Neg); Color, Urine Yellow (P-Yellow); Glucose Qualitative, Urine Neg (Neg); Ketones, Urine Neg (Neg); Leukocyte Esterase, Urine 1+ (Neg); Nitrite, Urine Neg (Neg); Protein, Urine 2+ (Neg); Urobilinogen, Urine 2+ (Normal)
[2024-11-03 18:08] LABS: Bacteria Few /hpf; Calcium Oxalate Crystals Mod /hpf; Red Blood Cells, Urine 0-2 /hpf (0-2); Squamous Epithelial Cells Few /hpf (Few)
[2024-11-03 20:07] LABS: Influenza A, PCR NEGATIVE (NEGATIVE); Influenza B, PCR NEGATIVE (NEGATIVE); Resp Syncytial Virus, PCR NEGATIVE (NEGATIVE); SARS-Cov-2 (COVID-19) PCR, MMC NEGATIVE (NEGATIVE)
[2024-11-03] MEDS ORDERED: Ondansetron HCl 2 MG / ML 2ML Vial IV PRN (23:30)
[2024-11-03] MEDS ORDERED: FLU VACC TS2024-25(6MOS UP)/PF 45 MCG/0.5 ML SYRINGE IM ONE (23:35)
[2024-11-04] MEDS ORDERED: Docusate Sodium/Senna 1 Tab PO PRN (00:10)
[2024-11-04 00:29] VITALS: BP 112/71
--- NOTE | 2024-11-04 01:37 | NUR ---
ASSUMPTION OF CARE REPORT RECEIVED FROM INSPECTOR OPEN DIE DANA. PT BROUGHT TO PCU VIA GURNEY, PT SLID FROM GURNEY TO PCU BED. SHE IS ALERT, ORIENTED TO SELF ONLY. PER REPORT PTS FAMILY STATED PT IS ALERT AND ORIENTED X4 AT BASELINE. HR IN THE 70'S, SINUS RHYTHM, SHE DENIES ANY CP/PRESSURE, NUMB/TINGLING, SBP SOFT IN THE 100'S, MAP >65. O2 AT 94% ON 4L VIA NC, PT ON 3L AT BASELINE. SHE REPORTS FEELING INCREASININLY SOB OVER THE LAST MONTH. PT HAS REDNESS OF THE COCCYX, MEPILEX PLACED, MD AWARE. PT RESTING IN BED AT THIS TIME. CALL LIGHT IN REACH, BED ALARM ON. RESIDENT TO BEDSIDE TO EXAMINE PT. RESIDENT AWARE PT CONFUSED AND NOT AT BASELINE. ALSO REVIEWED LABS/IMAGING WITH RESIDENT. NO NEW ORDERS AT THIS TIME. PT DENIES QUESTIONS OR CONCERNS.
[2024-11-04 03:24] VITALS: BP 108/67
[2024-11-04 03:57] LABS: BASOPHILS ABSOLUTE AUTO 0.06 K/mm3 (0.00-0.23); BASOPHILS PERCENT AUTO 1 % (0-2); EOSINOPHILS ABSOLUTE AUTO 0.04 K/mm3 (0.00-0.68); EOSINOPHILS PERCENT AUTO 0 % (0-6); Hematocrit 36.5 % (33.0-51.0); Hemoglobin 11.9 g/dL (11.5-16.0); IMMATURE GRAN ABSOLUTE AUTO 0.04 K/mm3 (0.00-0.10); IMMATURE GRAN PERCENT AUTO 0 % (0-1); LYMPHOCYTES ABSOLUTE AUTO 1.21 K/mm3 (0.84-5.20); LYMPHOCYTES PERCENT AUTO 10 % (21-46); MONOCYTES ABSOLUTE AUTO 0.81 K/mm3 (0.16-1.47); MONOCYTES PERCENT AUTO 6 % (4-13); Mean Corpuscular HGB 28.6 pg (26.0-34.0); Mean Corpuscular HGB Conc 32.6 g/dL (31.5-36.5); Mean Corpuscular Volume 88 fL (80-100); Mean Platelet Volume 10.4 fL (9.1-12.4); NEUTROPHILS PERCENT AUTO 83 % (41-73); Platelet Count 164 K/mm3 (150-400); RDW Coefficient Variation 17.3 % (11.7-14.2); RDW Standard Deviation 54.3 fL (35.1-46.3); Red Blood Cell Count 4.16 M/mm3 (3.80-5.20); White Blood Cell Count 12.56 K/mm3 (4.00-11.30)
[2024-11-04 04:15] LABS: Albumin, Blood 2.9 g/dL (3.4-5.0); Albumin/Globulin Ratio 0.8 (0.8-1.8); Bun/Creatinine Ratio 27.4 (12.0-20.0); Calcium, Blood 8.9 mg/dL (8.5-10.1); Creatinine, Blood 1.35 mg/dL (0.40-1.00); Globulin, Blood 3.7 g/dL (2.2-4.0); Potassium, Blood 5.1 mmol/L (3.5-5.5); Total Protein, Blood 6.6 g/dL (6.4-8.2)
--- NOTE | 2024-11-04 05:31 | NUR ---
SHIFT SUMMARY PT ALERT, ORIENTED TO SELF. WHEN ASKED ABOUT PLACE PT STATED "WERE [facility]". SHE IS COOPERATIVE TO CARE. HR IN THE 70'S, SINUS RHYTHM, SHE DENIES CP/PRESSURE, NUMB/TINGLING, SBP IN THE 100'S-110'S. PT ON 4L O2 VIA NC, ON 3L AT BASELINE, SOB WITH EXERTION. T/O SHIFT PT HAD NO URINE OUTPUT, BLADDER SCAN COMPLETED, >393 ON SCAN. RESIDENT IN PCU AT THIS TIME AND NOTIFIED, NO NEW ORDERS PLACED. DISCUSSED WITH PSYCHOLOGY TECHNICIAN, CALL PLACED TO PROVIDER. URMILA ORDERED TO START THIS AM IF BP TOLERATES. ADMITTING DOCTOR PLACED ORDERS FOR CPAP, CALL PLACED TO RT, PER RT PT DOES NOT NEED CPAP AT THIS TIME BUT WILL MONITOR RESPIRATORY STATUS. PT SHORTLY URINATED AFTER AND HAD 200 ML'S OUT. PT WAS ABLE TO TOLERATE GETTING UP TO BSC WITH NURSE ASSIST. PT RESTING IN BED AT THIS TIME WILL MONITOR PT AND REPORT TO ONCOMING RN.
[2024-11-04 08:23] VITALS: BP 119/73
[2024-11-04] MEDS ORDERED: Furosemide 10 MG / ML 2ML Vial IV SCH (09:00)
[2024-11-04] MEDS ORDERED: Furosemide 10 MG/ML 4ML Vial IV SCH (09:00)
[2024-11-04] MEDS ORDERED: Venlafaxine HCl 25 MG Tab PO SCH (09:00)
[2024-11-04] MEDS ORDERED: Apixaban 5 MG Tab PO SCH (09:00)
[2024-11-04] MEDS ORDERED: PRESERVISION A1 EAC1 PO (10:54)
[2024-11-04 12:21] VITALS: BP 117/72
[2024-11-04 16:24] VITALS: BP 112/71
[2024-11-04] MEDS ORDERED: Melatonin 5 MG Tablet PO SCH (18:00)
--- NOTE | 2024-11-04 18:25 | NUR ---
SHIFT SUMMARY PT ALERT, ORIENTED TO SELF. WHEN ASKED ABOUT PLACE PT STATED "WERE [facility] THE [facility]". SHE IS COOPERATIVE TO CARE. HR IN THE 70'S, SINUS RHYTHM, SHE DENIES CP/PRESSURE, NUMB/TINGLING, SBP IN THE 100'S-110'S. PT ON 3L O2 VIA NC, WAS ABLE TO WEAN TO 2L SATS IN THE HIGH 90'S. PAENT ABLE TO STAND AND PIVOT TO BSC WITH A ONE ASSIST. PATIENT PLACED ON CARDIAC DIET. LASIX STARTED. PT RESTING IN BED AT THIS TIME WILL MONITOR PT AND REPORT TO ONCOMING RN.
[2024-11-04 19:23] VITALS: BP 110/65
[2024-11-04] MEDS ORDERED: Beta-Carotene (A) W-C & E/Min 1 Tab PO SCH (21:00)
[2024-11-04] MEDS ORDERED: Amoxicillin 500 MG Cap PO SCH (21:00)
[2024-11-04] MEDS ORDERED: Lactobacil 2-S.Thermo-Bifido 1 1 Cap PO SCH (21:00)
[2024-11-05] VITALS (7 sets, daily range): BP systolic 102–125; BP diastolic 52–77
[2024-11-05 04:42] LABS: BASOPHILS ABSOLUTE AUTO 0.05 K/mm3 (0.00-0.23); BASOPHILS PERCENT AUTO 1 % (0-2); EOSINOPHILS ABSOLUTE AUTO 0.01 K/mm3 (0.00-0.68); EOSINOPHILS PERCENT AUTO 0 % (0-6); Hematocrit 34.1 % (33.0-51.0); Hemoglobin 11.4 g/dL (11.5-16.0); IMMATURE GRAN ABSOLUTE AUTO 0.04 K/mm3 (0.00-0.10); IMMATURE GRAN PERCENT AUTO 0 % (0-1); LYMPHOCYTES ABSOLUTE AUTO 0.96 K/mm3 (0.84-5.20); LYMPHOCYTES PERCENT AUTO 9 % (21-46); MONOCYTES PERCENT AUTO 8 % (4-13); Mean Corpuscular HGB 28.4 pg (26.0-34.0); Mean Corpuscular HGB Conc 33.4 g/dL (31.5-36.5); Mean Corpuscular Volume 85 fL (80-100); NEUTROPHILS ABSOLUTE AUTO 8.36 K/mm3 (1.96-9.15); NEUTROPHILS PERCENT AUTO 82 % (41-73); Platelet Count 163 K/mm3 (150-400); RDW Standard Deviation 52.5 fL (35.1-46.3); Red Blood Cell Count 4.02 M/mm3 (3.80-5.20); White Blood Cell Count 10.22 K/mm3 (4.00-11.30)
[2024-11-05 05:09] LABS: Albumin, Blood 2.9 g/dL (3.4-5.0); Albumin/Globulin Ratio 0.8 (0.8-1.8); Bilirubin, Total 2.5 mg/dL (0.1-1.0); Bun/Creatinine Ratio 33.9 (12.0-20.0); Calcium, Blood 8.9 mg/dL (8.5-10.1); Creatinine, Blood 1.15 mg/dL (0.40-1.00); Globulin, Blood 3.6 g/dL (2.2-4.0); Magnesium, Blood 1.9 mg/dL (1.6-2.4); Phosphorus, Blood 3.5 mg/dL (2.5-4.9); Potassium, Blood 4.1 mmol/L (3.5-5.5); Total Protein, Blood 6.5 g/dL (6.4-8.2)
--- NOTE | 2024-11-05 05:54 | NUR ---
SHIFT SUMMARY PT ALERT, ORIENTED TO SELF. PT UNABLE TO STATE WHERE SHE IS OR WHY SHE IS HERE. SHE IS ABLE TO STATE THE NAME OF HER AND SISTER. HR IN THE 70'S, SINUS RHYTHM, DENIES HAVING ANY CP/PRESSURE, NUMB/TINGLING, SBP STABLE. PER TELE PT HAD AN EPISODE ON THE HEART MONITOR OF ST [facility] THAT OCCURED WITH MOVEMENT BUT RESOLVED, RESIDENT NOTIFIED. O2 >92% ON 3L VIA NC, PT ON 3L AT BASELINE, SHE DOES REPORT SOB OCASSIONALLY, RESOLVES WITH DEEP BREATHING AND REPOSTIONING. PT UP TO BSC A FEW TIMES T/O SHIFT. PT RESTING IN BED AT THIS TIME. WILL MONITOR PT AND REPORT TO ONCOMING RN.
--- NOTE | 2024-11-05 07:51 | NUR ---
ASSUMPTION NOTE: THIS RN TO ASSUME CARE OF PATIENT. PATIENT RESTING IN BED EVEN & UNLABORED RESPIRATIONAS, EASILY AROUSABLE. VITAL SIGNS TAKEN & PATIENT STABLE. PATIENT DENIED ANY CHEST PAIN/PRESSURE. PATIENT ORIENTED X1 TO HER SELF, WAS REORINTED TO BEING AT THE HOSPITAL AND WHAT THE PLAN OF CARE IS MOVING FORWRAD. PATIENT HAS CALL LIGHT WITHIN REACH & BED IN LOWEST POSITION. ASKING FOR BREAKFAST AND NOTIFIED ONCE THE TRAYS ARRIVE IT WILL BE BROUGHT IN.
[2024-11-05] MEDS ORDERED: Losartan Potassium 25 MG Tab PO SCH ×2 (09:00)
[2024-11-05] MEDS ORDERED: Potassium Chloride 20 MEQ TabCR PO SCH (09:00)
--- NOTE | 2024-11-05 09:42 | NUR ---
RESIDENT AT BEDSIDE: REISDENT AT BEDSIDE TO TALK WITH PATIENT AND FAMILY. PATIENT IS REQUESTING WHEN SHE WILL BE ABLE TO GO HOME. PATIENT IS AT BASELINE OXYGEN. DAUGHTER & ARE AT BEDSIDE.
[2024-11-05] MEDS ORDERED: Acetaminophen 325 MG TABLET PO PRN (11:50)
[2024-11-05] MEDS ORDERED: Empagliflozin 10 MG TAB PO SCH (12:00)
[2024-11-05] MEDS ORDERED: Furosemide 10 MG/ML 4ML Vial IV ONE (17:00)
--- NOTE | 2024-11-05 17:15 | NUR ---
TRANSFER NOTE: THIS RN GAVE REPORT TO RECEVING NURSE ON MEDICAL FLOOR. PATIENT TRANSFERED UPSTAIRS VIA WHEELCHAIR WITH OXYGEN. FAMILY WAS NOTIFIED AND WENT UPSTAIRS WITH PATIENT. PATIENT TOOK ALL PERSONAL BELONGINGS WITH HER. PATIENT WAS NOTIFIED WELL. PATIENT IS ALERT AND ORIENTED X2 TO SELF & FAMILY AT BEDSIDE. CONTINUES TO BE ON TELEMETRY.
--- NOTE | 2024-11-05 18:02 | NUR ---
ASSUMPTION OF CARE NOTE: PATIENT ARRIVES TO ROOM VIA WHEELCHAIR AT 1733 FROM PCU. ASSUME CARE OF PATIENT. PATIENT TRANSFFERED TO BED c SBA. SKIN ASSESSMENT c 2 RN'S VERIFIED COMPLETED. PATIENT A/O TO SELF AND FAMILY AT BEDSIDE. PATIENT ORIENTATED TO ROOM AND CALL SYSTEM. VITALS TAKEN. PATIENT SITTING UPRIGHT IN BED HAVING DINNER AT THIS TIME. BED ALARM ON. CALL LIGHT IN REACH.
[2024-11-06 03:07] VITALS: BP 122/67
--- NOTE | 2024-11-06 03:48 | NUR ---
SHIFT SUMMARY PT ALERT ORIENTED ABLE TO VERBALIZE NEEDS CALLS APPROPRIATELY. VSS ON 1L SATTING AT 100%. NO C/O PAIN THIS SHIFT. SHE SLEPT MOST OF THE SHIFT. 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 SHE GETS UP TO THE COMMODE IN HER ROOM WITH SBA. REMAINS ON HALF-WAY AMOXICILLIN FOR ENDOCARDITIS. SHES DUE TO DISCHARGE TO HOME TODAY. NO C/O SOB. REMAINS WITH SLIGHT SWELLING TO BLE. RESTING IN BED AT THIS TIME WITH CALL LIGHT IN [facility]
[2024-11-06 05:15] LABS: BASOPHILS ABSOLUTE AUTO 0.02 K/mm3 (0.00-0.23); BASOPHILS PERCENT AUTO 0 % (0-2); EOSINOPHILS ABSOLUTE AUTO 0.07 K/mm3 (0.00-0.68); EOSINOPHILS PERCENT AUTO 1 % (0-6); Hematocrit 34.8 % (33.0-51.0); Hemoglobin 11.7 g/dL (11.5-16.0); IMMATURE GRAN ABSOLUTE AUTO 0.03 K/mm3 (0.00-0.10); IMMATURE GRAN PERCENT AUTO 0 % (0-1); LYMPHOCYTES ABSOLUTE AUTO 0.71 K/mm3 (0.84-5.20); LYMPHOCYTES PERCENT AUTO 8 % (21-46); MONOCYTES ABSOLUTE AUTO 0.71 K/mm3 (0.16-1.47); MONOCYTES PERCENT AUTO 8 % (4-13); Mean Corpuscular HGB 28.4 pg (26.0-34.0); Mean Corpuscular HGB Conc 33.6 g/dL (31.5-36.5); Mean Corpuscular Volume 85 fL (80-100); Mean Platelet Volume 10.1 fL (9.1-12.4); NEUTROPHILS ABSOLUTE AUTO 7.55 K/mm3 (1.96-9.15); NEUTROPHILS PERCENT AUTO 83 % (41-73); Platelet Count 166 K/mm3 (150-400); RDW Standard Deviation 51.1 fL (35.1-46.3); Red Blood Cell Count 4.12 M/mm3 (3.80-5.20); White Blood Cell Count 9.09 K/mm3 (4.00-11.30)
[2024-11-06 06:00] LABS: Albumin, Blood 2.7 g/dL (3.4-5.0); Albumin/Globulin Ratio 0.8 (0.8-1.8); Bilirubin, Total 1.7 mg/dL (0.1-1.0); Bun/Creatinine Ratio 35.5 (12.0-20.0); Calcium, Blood 8.5 mg/dL (8.5-10.1); Creatinine, Blood 0.96 mg/dL (0.40-1.00); Globulin, Blood 3.4 g/dL (2.2-4.0); Potassium, Blood 3.3 mmol/L (3.5-5.5); Total Protein, Blood 6.1 g/dL (6.4-8.2)
[2024-11-06 08:33] VITALS: BP 119/69
[2024-11-06] MEDS ORDERED: Amoxicillin 500 MG Cap PO SCH (09:00)
[2024-11-06] MEDS ORDERED: Torsemide 20 MG TAB PO SCH (09:00)
[2024-11-06] MEDS ORDERED: Magnesium Oxide 400 MG Tab PO SCH (09:00)
[2024-11-06] MEDS ORDERED: Metoprolol Succinate 25 MG TABCR PO SCH (09:00)
[2024-11-06] MEDS ORDERED: JARDIANCE10 MG PO (11:05)
[2024-11-06] MEDS ORDERED: LOSA25 PO (11:06)
[2024-11-06] MEDS ORDERED: METO25ER PO (11:06)
[2024-11-06] MEDS ORDERED: MAGNESIUM OXID500 MG PO (11:06)
[2024-11-06] MEDS ORDERED: TORS10 PO (11:07)
[2024-11-06] MEDS ORDERED: SPIR25 PO (11:07)
--- NOTE | 2024-11-06 12:17 | NUR ---
DC SUMMARY PT DC THIS SHIFT DC INSTRUCTION GONE OVER WITH PT AND PT WHOM BOTH STATED UNDERSTANDING. PT WAS ESCORTED OUT TO PRIVATE VEHICLE VIA W/C BY ACTION INSTALLER.
== END 2024-11-06 12:17 | disposition home or self-care (01) | DRG 291 ==
LOC: ER 15:21 → PCU 21:55 → ERHOLD 21:55 → PCU 11-04 00:05 → MEDS 11-05 17:30
PROVIDERS: Family Medicine; Student in an Organized Health Care Education/Training Program; ADMIT Internal Medicine
DX: I11.0 Hypertensive heart disease with heart failure (principal); I50.23 Acute on chronic systolic (congestive) heart failure; J96.21 Acute and chronic respiratory failure with hypoxia; N17.9 Acute kidney failure, unspecified; Z66 Do not resuscitate; K21.9 Gastro-esophageal reflux disease without esophagitis; I45.10 Unspecified right bundle-branch block; I45.6 Pre-excitation syndrome; I27.20 Pulmonary hypertension, unspecified; R74.01 Elevation of levels of liver transaminase levels; R74.8 Abnormal levels of other serum enzymes; I44.0 Atrioventricular block, first degree; K76.9 Liver disease, unspecified; E87.6 Hypokalemia; I34.0 Nonrheumatic mitral (valve) insufficiency; Z79.01 Long term (current) use of anticoagulants; Z88.8 Allergy status to other drugs, medicaments and biological substances; Z79.899 Other long term (current) drug therapy; Z98.51 Tubal ligation status; Z90.49 Acquired absence of other specified parts of digestive tract; Z98.890 Other specified postprocedural states; Z87.891 Personal history of nicotine dependence; Z90.710 Acquired absence of both cervix and uterus; Z95.1 Presence of aortocoronary bypass graft; Z95.2 Presence of prosthetic heart valve; Z86.79 Personal history of other diseases of the circulatory system; I69.828 Other speech and language deficits following other cerebrovascular disease
CPT/HCPCS: 0241U; 19001; 36415; 51701; 71046; 71260; 74177; 80053; 81001; 82947; 83690; 83735; 83880; 84100; 84484; 85025; 85379; 87086; 93005; 93010; 93306; 94762; 97110; 97112; 97161; 97530; 99285-25; A9270; J1940; Q9967

== ENCOUNTER → 2024-11-24 | Outpatient (CLI) | payer MEDICARE, OTHER ==
[~2024-11-24] MED LIST changes: +AMOX500 PO; +ELIQUIS2.5 MG PO; -Enoxaparin 40 MG/0.4 ML SYR SC SCH; +FURO40 PO; +JARDIANCE10 MG PO; +MAGNESIUM OXID500 MG PO; +MELATONIN5 M1 PO; +METO25ER PO; +METOPROLOL SUCC25 MG PO; +MORPHINE S PO; +PANT40 PO; +PRESERVISION A1 EAC1 PO; +PRESERVISION A1 EAC2 PO; +PROBIOTIC1 EA14 PO; +SENNA LAXATIVE8.6 MG PO; +SPIR25 PO; +TORS10 PO; +VENL37.5 PO
[2024-11-24 19:16] LABS: BASOPHILS ABSOLUTE AUTO 0.04 K/mm3 (0.00-0.23); BASOPHILS PERCENT AUTO 1 % (0-2); EOSINOPHILS ABSOLUTE AUTO 0.05 K/mm3 (0.00-0.68); EOSINOPHILS PERCENT AUTO 1 % (0-6); Hemoglobin 10.8 g/dL (11.5-16.0); IMMATURE GRAN ABSOLUTE AUTO 0.04 K/mm3 (0.00-0.10); IMMATURE GRAN PERCENT AUTO 1 % (0-1); LYMPHOCYTES ABSOLUTE AUTO 0.85 K/mm3 (0.84-5.20); LYMPHOCYTES PERCENT AUTO 13 % (21-46); MONOCYTES PERCENT AUTO 8 % (4-13); Mean Corpuscular HGB 27.5 pg (26.0-34.0); Mean Corpuscular HGB Conc 31.8 g/dL (31.5-36.5); Mean Corpuscular Volume 87 fL (80-100); Mean Platelet Volume 11.1 fL (9.1-12.4); NEUTROPHILS ABSOLUTE AUTO 5.17 K/mm3 (1.96-9.15); NEUTROPHILS PERCENT AUTO 78 % (41-73); Platelet Count 282 K/mm3 (150-400); RDW Coefficient Variation 16.8 % (11.7-14.2); RDW Standard Deviation 53.3 fL (35.1-46.3); Red Blood Cell Count 3.93 M/mm3 (3.80-5.20); White Blood Cell Count 6.65 K/mm3 (4.00-11.30)
[2024-11-24 20:16] LABS: Albumin, Blood 3.4 g/dL (3.4-5.0); Albumin/Globulin Ratio 0.8 (0.8-1.8); Bilirubin, Total 0.6 mg/dL (0.1-1.0); Bun/Creatinine Ratio 44.6 (12.0-20.0); Calcium, Blood 9.7 mg/dL (8.5-10.1); Creatinine, Blood 1.21 mg/dL (0.40-1.00); Globulin, Blood 4.1 g/dL (2.2-4.0); Potassium, Blood 4.2 mmol/L (3.5-5.5); Total Protein, Blood 7.5 g/dL (6.4-8.2)
== END ==
LOC: LAB 17:46 → LAB SHORT 17:46
PROVIDERS: Internal Medicine
DX: I10 Essential (primary) hypertension (principal); R74.8 Abnormal levels of other serum enzymes; R79.89 Other specified abnormal findings of blood chemistry; R63.4 Abnormal weight loss
CPT/HCPCS: 80053; 83880; 85025

== ENCOUNTER → 2024-12-08 | Outpatient (CLI) | payer MEDICARE, OTHER ==
[2024-12-08 16:28] LABS: Percent Saturation 15.3 % (15.0-50.0)
[2024-12-08 16:46] LABS: Thyroid Stimulating Hormone 3.6 uIU/mL (0.360-4.800)
[2024-12-08 19:11] LABS: Albumin, Blood 3.3 g/dL (3.4-5.0); Albumin/Globulin Ratio 0.8 (0.8-1.8); Bilirubin, Total 0.4 mg/dL (0.1-1.0); Bun/Creatinine Ratio 40.9 (12.0-20.0); Calcium, Blood 9.1 mg/dL (8.5-10.1); Creatinine, Blood 1.54 mg/dL (0.40-1.00); Globulin, Blood 4.4 g/dL (2.2-4.0); Potassium, Blood 5.2 mmol/L (3.5-5.5); Total Protein, Blood 7.7 g/dL (6.4-8.2)
== END ==
LOC: LAB SHORT 15:28 → LAB 15:28
PROVIDERS: Internal Medicine
DX: I50.22 Chronic systolic (congestive) heart failure (principal); R60.9 Edema, unspecified; R06.00 Dyspnea, unspecified; E61.1 Iron deficiency; E55.9 Vitamin D deficiency, unspecified; E53.8 Deficiency of other specified B group vitamins; I11.0 Hypertensive heart disease with heart failure
CPT/HCPCS: 80053; 82306; 82607; 82728; 82746; 83540; 83550; 83880; 84443

== ENCOUNTER → 2025-01-23 | Outpatient (CLI) | payer MEDICARE, OTHER ==
[2025-01-23 12:41] LABS: Adenovirus F 40/41 Not Detected (NOT DETECT); Astrovirus Not Detected (NOT DETECT); Campylobacter Sp Not Detected (NOT DETECT); Cryptosporidium Not Detected (NOT DETECT); Cyclospora Cayetanensis Not Detected (NOT DETECT); E. Coli O157 Not Detected (NOT DETECT); Entamoeba Histolytica Not Detected (NOT DETECT); Enteroaggregative E. coli-EAEC Not Detected (NOT DETECT); Enteropathogenic E. coli-EPEC Not Detected (NOT DETECT); Enterotoxigenic E. coli-ETEC Not Detected (NOT DETECT); Giardia Lamblia Not Detected (NOT DETECT); Norovirus GI/GII Not Detected (NOT DETECT); Plesiomonas Shigelloides Not Detected (NOT DETECT); Rotavirus A Not Detected (NOT DETECT); Salmonella Sp Not Detected (NOT DETECT); Sapovirus Not Detected (NOT DETECT); Shiga Toxin-prod E. coli-STEC Not Detected (NOT DETECT); Shigella/Enteroin E. coli-EIEC Not Detected (NOT DETECT); Vibrio Cholerae Not Detected (NOT DETECT); Vibrio Sp Not Detected (NOT DETECT); Yersinia Enterocolitica Not Detected (NOT DETECT)
== END | disposition home or self-care (01) ==
LOC: LAB SHORT 09:07 → LAB 09:07
PROVIDERS: Internal Medicine
DX: I10 Essential (primary) hypertension (principal); R19.7 Diarrhea, unspecified
CPT/HCPCS: 87507